=== PATIENT | male | born 1995 | race Hispanic/Latino ===

== ENCOUNTER 2018-03-07 03:10 | Emergency (ER) | payer OTHER ==
[2018-03-07] MEDS ORDERED: ONDANSETRON HCL 4 MG/2 ML VIAL ONE (03:44)
[2018-03-07] MEDS ORDERED: SODIUM CHLORIDE 0.9% 1000ML 1,000 ML IV ONE (03:44)
[2018-03-07] MEDS ORDERED: METOCLOPRAMIDE 10 MG/2 ML VIAL ONE (03:44)
== END 2018-03-07 05:00 | disposition home or self-care (01) ==
LOC: EDH 03:10
DX: E86.9 Volume depletion, unspecified (principal)
CPT/HCPCS: 96361; 96374; 96375; 99283; J2405; J2765; J7030

== ENCOUNTER 2024-08-02 15:44 | Emergency (ER) | payer OTHER ==
[~2024-08-02] VITALS: Ht 177.8 cm; Wt 108.9 kg
--- NOTE | 2024-08-02 17:07 | ERN ---
General Chief Complaint: Rapid Heart Rate Stated Complaint: ELEVATED HEART RATE/ NAUSEA/DIZZY Time Seen by MD: 15:49 History of Present Illness Initial Comments 28-year-old male who presents for anxiety type symptoms. Patient was driving his car he felt his heart racing, he checked his apple watch in his heart rate was in the 80s. He felt flushed. He felt some numbness and tingling in his l egs and arms. No other symptoms. No dyspnea. His symptoms have resolved. Denies drug abuse or alcohol abuse. Allergies: Coded Allergies: No Known Drug Allergies (Unverified Allergy, Unknown, 08/02/24) Past Medical History Past Medical History: No Pertinent History Past Surgical History: None ROS Dictation CONSTITUTIONAL: No chills, no fever, no weakness, no diaphoresis, no malaise. HEAD/FACE: No signs of trauma. EENT: No eye pain, no blurred vision, no tearing, no double vision, no ear pain, no ear discharge, no nose pain, no nasal congestion, no throat pain, no throat swelling, no mouth pain. RESPIRATORY: No cough, no orthopnea, no SOB, no stridor, no wheezing. CARDIOVASCULAR: No chest pain, no edema, no palpitations, no syncope. GASTROINTESTINAL/ABDOMINAL: No abdominal pain, no constipation, no diarrhea, no nausea, no vomiting. GENITOURINARY: No abnormal discharge, no dysuria, no frequent urination, no hematuria. No complaints of pain in the genitals. MUSCULOSKELETAL: No back pain, no gout, no joint pain, no joint swelling, no muscle pain, no muscle stiffness, no neck pain. INTEGUMENTARY: No change in color, no change in hair/nails, no dryness, no lesion, no lumps, no rash. NEUROLOGICAL/PSYCH: No anxiety, not depressed, no emotional problem, no headache, no numbness, no pre-existing deficit, no history of seizures, no tremors, no weakness. HEMATOLOGIC/LYMPHATIC: Not anemic, no history of blood clots, no apparent bleeding, no bruising, glands not swollen. All Systems Negative, Except as Noted. Physical Exam Physical Exam Dictation VITAL SIGNS: Reviewed. GENERAL APPEARANCE: Alert, oriented x3, no acute distress, obese. HEAD AND FACE: Non-traumatic. EYES: PERRL, pink conjunctivas, eyelid no trauma, anterior chamber clear. EARS: Pinnas intact and no signs of trauma or erythema. Ear canals clear and no discharge. TMs no erythema. NOSE: No discharge, no bleeding. OROPHARYNX: Mouth normal, teeth no caries, tongue pink. Pharynx clear, no erythema. Tonsils no exudates, no abscesses noted. Mucous membrane moist. NECK: Supple, non-tender, no thyromegaly, no masses, no JVD, no bruits. BREAST: Deferred. CHEST: No tenderness, no crepitus, no paradoxical movement, no retractions. LUNGS: Clear, well-ventilated, symmetric, no rales, no wheezing, no rhonchi, no stridor, good breath sounds bilaterally. HEART: Regular rate, regular rhythm, no murmur, no gallops. VASCULAR: No peripheral edema. ABDOMEN: Soft, positive bowel sounds, nondistended, no guarding, nontender, no rebound, no masses no hepatomegaly, no splenomegaly, no Plasencia's sign, no hernias. RECTAL: Deferred. GENITAL: Deferred. NEUROLOGICAL: Normal speech, gross motor function intact, gross sensory function intact. MUSCULOSKELETAL: Neck nontender, full range of motion, back nontender, full range of motion. EXTREMITIES: Nontender, full range of motion. SKIN: Color pink, dry, no turgor, no rash, no lacerations, no abrasions, no contusions. LYMPHATICS: Deferred. MDM CC: Palpitations Historian: Patient Comorbidities: None Limitations by social determinants of health: None Differential diagnosis: Anxiety, arrhythmia, other Vital signs are stable Clinical exam is unremarkable EKG (independently interpreted by me): Sinus rhythm, rate 95, normal axis, good R-wave progression, intervals stable. Normal EKG. No STEMI. I had a long conversation with the patient. There was no signs of arrhythmia or in his room in his life threats at this time. I suspect it is anxiety. I did offer the patient labs and further workup, but the patient has a wanted to make sure that has rhythm is okay. Since he EKGs normal exam is stable vital signs and has been on exam we will DC and he will follow up as an outpatient. ED Course Orders Procedure Category Date Status Time 12 Lead Ekg Tracing- EKG 08/02/24 Resulted Technical 15:52 Vital Signs Date Time Temp Pulse Resp B/P (MAP) Pulse Ox O2 Delivery O2 Flow Rate FiO2 08/02/24 17:30 98.4 89 18 145/76 97 Room Air* 0 21 08/02/24 16:10 98.4 94 18 143/98 98 Room Air* 0 21 08/02/24 15:56 98.4 94 18 143/98 98 Room Air 0 DX & DISP Disposition: Discharge Departure Impression: Primary Impression: Palpitations Additional Impression: Anxiety about health Condition: Stable Additional Instructions: Your vital signs are normal here in the ER. Your EKG is normal. As we discussed, when you get home, consider following up with the primary doctor for a general checkup. You may need further studies such as a CBC, metabolic panel, thyroid study, or other studies. Please return to the emergency department as needed. Referrals: ANDREW TOMPKINS (PCP) JULIO RAZA DO Aug 02, 2024 17:07
[2024-08-02 17:30] VITALS: BP 145/76; PULSE 89; RESP 18; TEMP 98.4; O2SAT 97
--- NOTE | 2024-08-03 10:30 | EKG ---
[facility] Test Date: 2024-08-02 Test Time: 15:54:02 Pat Name: DANK GOLDBERG Department: ED Room: Gender: M [employer] Administrator: [facility] : 1995 Requested By: JULIO RAZA Order Number: [id number] Reading MD: Ailyn Muñiz Measurements Intervals [place] Rate: 95 P: 41 ID: [id number] QRS: -19 QRSD: 95 T: 4 QT: 333 QTc: 418 Interpretive Statements Sinus rhythm Borderline ST elevation, anterior leads No previous ECG available for comparison Electronically Signed On 08-03-2024 13:21:37 CDT by Ailyn Muñiz Please click the below link to view image of tracing.
== END 2024-08-02 17:47 | disposition home or self-care (01) ==
LOC: EDH 15:44
DX: F41.9 Anxiety disorder, unspecified (principal); R00.2 Palpitations
CPT/HCPCS: 93005; 99283